=== PATIENT | male | born 1990 | race Caucasian/White ===

== ENCOUNTER 2020-11-19 05:49 | Emergency (ER) | payer MEDICAID ==
[~2020-11-19] VITALS: Ht 172.7 cm; Wt 82.0 kg
[2020-11-19 05:56] VITALS: BP 126/82
[2020-11-19] MEDS ORDERED: BACITRACIN 15GM TUBE TOP ONE (06:15)
[2020-11-19] MEDS ORDERED: ACETAMINOPHEN 325MG TABLET PO ONE (06:15)
[2020-11-19] MEDS ORDERED: BACITRACIN ZINC OINT UDPKT TOP SCH (06:30)
== END 2020-11-19 06:30 | disposition home or self-care (01) ==
LOC: ER 05:49
DX: S00.81XA Abrasion of other part of head, initial encounter (principal); S00.83XA Contusion of other part of head, initial encounter; J45.909 Unspecified asthma, uncomplicated; F17.200 Nicotine dependence, unspecified, uncomplicated; W22.01XA Walked into wall, initial encounter; Y93.9 Activity, unspecified; Y92.9 Unspecified place or not applicable; Z88.0 Allergy status to penicillin
CPT/HCPCS: 93005; 99283